=== PATIENT | male | born 1975 | race African-American/Black ===

== ENCOUNTER 2024-01-13 03:02 | Inpatient (IN) | payer OTHER ==
[~2024-01-13] VITALS: Ht 172.7 cm; Wt 121.6 kg
[2024-01-13 05:12] LABS: BASOPHILS % 1.2 % (0.0-2.0); EOSINOPHILS % 1.1 % (0.0-5.0); HEMATOCRIT. 47.2 % (42.0-52.0); HEMOGLOBIN. 15.5 g/dL (14.0-18.0); LYMPHOCYTES % 44.9 % (20.0-50.0); MEAN CORPUSCULAR HEMOGLOBIN 29.9 pg (28.0-32.0); MEAN CORPUSCULAR HGB CONC 32.8 g/dL (31.0-37.0); MEAN CORPUSCULAR VOLUME 91.2 fL (80.0-94.0); MEAN PLATELET VOLUME 10.3 fl (7.4-10.4); MONOCYTES % 9.3 % (2.0-8.0); NEUTROPHILS % 43.5 % (40.0-76.0); PLATELET 175 x1000/uL (130-400); RED BLOOD CELL COUNT 5.18 mill/uL (4.7-6.1); RED CELL DISTRIBUTION WIDTH 14.4 % (11.6-14.6); WHITE BLOOD COUNT 3.9 x1000/uL (4.5-11.0)
[2024-01-13 05:19] LABS: CHLORIDE 110 mEq/L (98-107); POTASSIUM 3.8 mEq/L (3.5-5.1); SODIUM 140 mEq/L (136-145)
[2024-01-13 05:20] LABS: CARBON DIOXIDE 25 mEq/L (21-32)
[2024-01-13 05:21] LABS: CALCIUM 9.4 mg/dL (8.7-10.4)
[2024-01-13 05:25] LABS: CREATININE 0.9 mg/dL (0.6-1.3); GLUCOSE 111 mg/dL (70-105); UREA NITROGEN BLOOD 14 mg/dL (9-23)
[2024-01-13 05:27] LABS: TROPONIN I HIGH SENSITIVITY 19 ng/L (3.0-53)
[2024-01-13 05:48] LABS: ETHANOL BLOOD < 10 mg/dL (<10)
[2024-01-13 05:50] LABS: INR 0.9; PARTIAL THROMBOPLASTIN TIME 29.3 sec (23.4-31.0); PROTHROMBIN TIME 10.3 sec (9.6-11.0)
[2024-01-13 05:55] LABS: CLARITY URINE CLEAR (CLEAR); COLOR URINE YELLOW (YELLOW); GLUCOSE URINE NEGATIVE (NEGATIVE); KETONES URINE NEGATIVE (NEGATIVE); LEUKOCYTE ESTERASE URINE NEGATIVE (NEGATIVE); NITRITE URINE NEGATIVE (NEGATIVE); OCCULT BLOOD URINE NEGATIVE (NEGATIVE); PH URINE 6.5 (4.5-8.0); PROTEIN URINE NEGATIVE (NEGATIVE); SPECIFIC GRAVITY URINE 1.015 (1.005-1.030); UROBILINOGEN URINE 0.2 E.U./dL (0.2-1.0)
[2024-01-13 06:03] LABS: *AMPHETAMINES SCREEN URINE NEGATIVE (NEGATIVE); *BARBITURATES SCREEN URINE NEGATIVE (NEGATIVE); *BENZODIAZEPINES SCREEN URINE NEGATIVE (NEGATIVE); *COCAINE SCREEN URINE NEGATIVE (NEGATIVE); METHADONE URINE SCREEN NEGATIVE (NEGATIVE); OPIATES URINE SCREEN NEGATIVE (NEGATIVE)
[2024-01-13 06:04] LABS: CANNABINOID URINE SCREEN NEGATIVE (NEGATIVE); ECSTASY MDMA SCREEN URINE NEGATIVE (NEGATIVE); PHENCYCLIDINE URINE SCREEN NEGATIVE (NEGATIVE)
[2024-01-13] MEDS: ASPIRIN 81MG TABLET PO NR (06:04)
[2024-01-13] MEDS ORDERED: DOCUSATE SODIUM 100MG CAPSULE PO PRN (10:15)
[2024-01-13] MEDS ORDERED: CLONIDINE 0.1MG TABLET PO PRN (10:15)
[2024-01-13] MEDS ORDERED: GUAIFENESIN 200MG/10ML SUGAR FREE UDC PO PRN (10:15)
[2024-01-13] MEDS ORDERED: MAGNESIUM/ALUMINUM HYDROXIDE/SIMETHICONE 30ML UDC PO PRN (10:15)
[2024-01-13] MEDS ORDERED: ONDANSETRON HCL 4MG/2ML INJ IV PRN (10:15)
[2024-01-13] MEDS ORDERED: ACETAMINOPHEN 325MG TABLET PO PRN ×2 (10:15)
[2024-01-13] MEDS ORDERED: IPRATROPIUM/ALBUTEROL 0.5-3(2.5)MG/3ML NEB HHN PRN (10:15)
[2024-01-13] MEDS: ENOXAPARIN 40MG/0.4ML SYR SUBCUT SCH (11:37)
[2024-01-13 12:21] LABS: BASOPHILS % 0.5 % (0.0-2.0); EOSINOPHILS % 0.8 % (0.0-5.0); HEMOGLOBIN. 16.9 g/dL (14.0-18.0); LYMPHOCYTES % 47.3 % (20.0-50.0); MEAN CORPUSCULAR HEMOGLOBIN 30.3 pg (28.0-32.0); MEAN CORPUSCULAR HGB CONC 33.1 g/dL (31.0-37.0); MEAN CORPUSCULAR VOLUME 91.6 fL (80.0-94.0); MEAN PLATELET VOLUME 10.2 fl (7.4-10.4); MONOCYTES % 7.4 % (2.0-8.0); PLATELET 165 x1000/uL (130-400); RED BLOOD CELL COUNT 5.57 mill/uL (4.7-6.1); RED CELL DISTRIBUTION WIDTH 14.8 % (11.6-14.6); WHITE BLOOD COUNT 4.3 x1000/uL (4.5-11.0)
[2024-01-13] MEDS: METOPROLOL TARTRATE 25MG TABLET PO NR (12:41)
[2024-01-13 13:05] LABS: CARBON DIOXIDE 24 mEq/L (21-32); CHLORIDE 109 mEq/L (98-107); POTASSIUM 4.1 mEq/L (3.5-5.1); SODIUM 141 mEq/L (136-145)
[2024-01-13 13:06] LABS: CALCIUM 9.3 mg/dL (8.7-10.4)
[2024-01-13 13:10] LABS: CREATININE 0.9 mg/dL (0.6-1.3); TRIGLYCERIDE 69 mg/dL (0-150)
[2024-01-13 13:11] LABS: GLUCOSE 95 mg/dL (70-105); UREA NITROGEN BLOOD 9 mg/dL (9-23)
[2024-01-13 13:12] LABS: ALANINE AMINOTRANSFERASE 37 IU/L (10-49); ALBUMIN 4.4 g/dL (3.2-4.8); ASPARTATE AMINOTRANSFERASE 34 IU/L (<34); CHOLESTEROL 233 mg/dL (<200); LDL CHOLESTEROL 163 mg/dL (5-100)
[2024-01-13 13:13] LABS: BILIRUBIN DIRECT 0.1 mg/dL (<=3.0); HDL CHOLESTEROL 78 mg/dL (>55)
[2024-01-13 13:14] LABS: BILIRUBIN TOTAL 0.6 mg/dL (0.1-1.0)
[2024-01-13 13:15] VITALS: BP 141/90; PULSE 56; RESP 18; TEMP 97.4
[2024-01-13 13:15] LABS: T4 FREE 1.26 ng/dL (0.89-1.76); THYROID STIMULATING HORMONE 1.25 uIU/mL (0.55-4.78)
[2024-01-13 16:00] VITALS: BP 141/109; PULSE 56; RESP 20; TEMP 97.4
[2024-01-13 20:00] VITALS: BP_SYST 162; PULSE 65; RESP 20; TEMP 97.2
[2024-01-13] MEDS: ATORVASTATIN CALCIUM 40MG TABLET PO SCH (22:06)
[2024-01-13] MEDS: AMLODIPINE 5MG TABLET PO SCH (22:06)
[2024-01-13] MEDS: METOPROLOL TARTRATE 25MG TABLET PO SCH (22:07)
[2024-01-13] MEDS: ENOXAPARIN 30MG/0.3ML SYR SUBCUT SCH (22:08)
[2024-01-14] VITALS: BP 140/97; PULSE 62; RESP 18; TEMP 97.3
[2024-01-14 04:00] VITALS: BP 126/86; PULSE 61; RESP 18; TEMP 97.7
[2024-01-14 08:00] VITALS: BP 138/92; PULSE 56; RESP 16; TEMP 97.5
[2024-01-14 12:00] VITALS: BP 129/78; PULSE 5; RESP 18; TEMP 97.5
[2024-01-14 16:00] VITALS: BP 132/86; PULSE 52; RESP 18; TEMP 97.7
[2024-01-14 20:00] VITALS: BP 137/92; PULSE 54; RESP 19; TEMP 97.9
[2024-01-15] VITALS: BP 134/84; PULSE 57; RESP 19; TEMP 97.7
[2024-01-15 04:00] VITALS: BP 113/75; PULSE 65; RESP 19; TEMP 97.7
[2024-01-15 07:24] LABS: CARBON DIOXIDE 28 mEq/L (21-32); CHLORIDE 108 mEq/L (98-107); POTASSIUM 3.9 mEq/L (3.5-5.1); SODIUM 141 mEq/L (136-145)
[2024-01-15 07:25] LABS: CALCIUM 8.9 mg/dL (8.7-10.4)
[2024-01-15 07:29] LABS: BASOPHILS % 0.5 % (0.0-2.0); EOSINOPHILS % 1.3 % (0.0-5.0); HEMATOCRIT. 46.2 % (42.0-52.0); HEMOGLOBIN. 15.3 g/dL (14.0-18.0); LYMPHOCYTES % 51.6 % (20.0-50.0); MONOCYTES % 8.5 % (2.0-8.0); NEUTROPHILS % 38.1 % (40.0-76.0); PLATELET 158 x1000/uL (130-400); RED BLOOD CELL COUNT 5.08 mill/uL (4.7-6.1); RED CELL DISTRIBUTION WIDTH 14.3 % (11.6-14.6); WHITE BLOOD COUNT 4.2 x1000/uL (4.5-11.0)
[2024-01-15 07:30] LABS: CREATININE 1.1 mg/dL (0.6-1.3); GLUCOSE 99 mg/dL (70-105); UREA NITROGEN BLOOD 14 mg/dL (9-23)
[2024-01-15 08:00] VITALS: BP 118/82; PULSE 55; RESP 19; TEMP 97
[2024-01-15 12:00] VITALS: BP 121/83; PULSE 53; RESP 16; TEMP 97.7
[2024-01-15 16:00] VITALS: BP 142/79; PULSE 55; RESP 16; TEMP 97
[2024-01-15 20:00] VITALS: BP 132/82; PULSE 62; PULSE 82; RESP 15; TEMP 97.6
[2024-01-16] VITALS: BP 125/79; PULSE 68; TEMP 97
[2024-01-16 04:00] VITALS: BP 137/86; PULSE 54; RESP 18; TEMP 97.9
[2024-01-16 08:00] VITALS: BP 118/85; PULSE 62; RESP 19; TEMP 97.3
[2024-01-16 12:00] VITALS: BP 129/88; PULSE 56; RESP 17; TEMP 97.7
[2024-01-16] MEDS ORDERED: METO25TA6 PO (14:34)
[2024-01-16] MEDS ORDERED: AMLO5TAB88 PO (14:34)
[2024-01-16 15:45] VITALS: BP 129/88; PULSE 56; TEMP 97.7; O2SAT 97
[2024-01-16 16:00] VITALS: BP 123/76; PULSE 69; RESP 18; TEMP 97.5
== END 2024-01-16 16:43 | disposition home or self-care (01) | DRG 310 ==
LOC: ER 03:42 → 5WST 05:59 → 7EST 15:00
PROVIDERS: ADMIT Hospitalist; ATTEND Hospitalist
DX: I48.0 Paroxysmal atrial fibrillation (principal); E78.5 Hyperlipidemia, unspecified; I10 Essential (primary) hypertension; E66.9 Obesity, unspecified; Z68.36 Body mass index [BMI] 36.0-36.9, adult; Z88.2 Allergy status to sulfonamides; Z79.899 Other long term (current) drug therapy; Z82.3 Family history of stroke; Z82.49 Family history of ischemic heart disease and other diseases of the circulatory system
CPT/HCPCS: 36415; 71045; 80048; 80061; 80076; 80305; 80320; 81003; 83036; 83735; 83880; 84439; 84443; 84484; 85025; 93005; 93306; 99285; J1650; G0480